=== PATIENT | male | born 1945 | race Caucasian/White ===

== ENCOUNTER → 2023-12-06 15:37 | Outpatient (REF) | payer OTHER, SELFPAY | LOC: HWRCS 15:37 | PROVIDERS: ATTENDING PHYSICIAN Internal Medicine Critical Care Medicine; FAMILY PHYSICIAN Family Medicine | DX: G47.33 Obstructive sleep apnea (adult) (pediatric) (principal) | CPT/HCPCS: 93306 ==

== ENCOUNTER → 2024-08-03 11:47 | Outpatient (REF) | payer OTHER, SELFPAY | LOC: DHSLP 11:47 | PROVIDERS: ATTENDING PHYSICIAN Internal Medicine Critical Care Medicine; FAMILY PHYSICIAN Family Medicine | DX: G47.33 Obstructive sleep apnea (adult) (pediatric) (principal); R06.83 Snoring | CPT/HCPCS: 95800 ==

== ENCOUNTER → 2024-10-06 06:18 | Outpatient (REF) | payer OTHER, SELFPAY | LOC: MRI 06:18 | PROVIDERS: ATTENDING PHYSICIAN Physical Medicine & Rehabilitation Sports Medicine | DX: M25.551 Pain in right hip (principal); T14.8XXA Other injury of unspecified body region, initial encounter; M70.61 Trochanteric bursitis, right hip; M76.01 Gluteal tendinitis, right hip; M16.11 Unilateral primary osteoarthritis, right hip | CPT/HCPCS: 73721 ==

== ENCOUNTER 2024-10-17 07:41 | Emergency (ER) | payer OTHER, SELFPAY ==
[2024-10-17 07:59] VITALS: BP 157/80
--- NOTE | 2024-10-17 09:10 | ED.GENMED ---
History of Present Illness
General
Chief Complaint: Cold/Flu/URI Symptoms
Source: patient and spouse
Time Seen by Provider: 10/17/24 09:00
History of Present Illness
History of Present Illness:
79-year-old male with past medical history of mild chronic kidney disease, hyperlipidemia, recently diagnosed with COVID this past Tuesday but symptoms starting last presenting to the emergency department for evaluation due to continued and
worsening cough, fatigue and generally feeling unwell. Patient states that last time he had COVID a little over 1 year ago he was given a prescription for Paxlovid but reports that the urgent care told him because of his history of chronic kidney
disease and some of his medications that he had increased risk of being on the medication and patient ultimately decided to forego the medication. Patient did start with a low-grade fever yesterday but has not had a fever yet today. No recent
antibiotics. No other concerns at this time.
Past History
Past History
ED Past Medical History: Hypercholesterolemia and Renal failure
ED Past Surgical History: Cholecystectomy and Tonsilectomy
Social History
Tobacco: Non-smoker
Alcohol: None
Drug: None
Personal:
Living: with family
Review of Systems
Review of Systems
All Other Systems: ROS reviewed and negative except as documented in HPI and ROS
Phy Exam
Physical Exam
Physical Exam:
GENERAL: Alert , in no apparent distress
EYE: conjunctiva clear
NECK: Supple
ENT: o/p clr, mmm.
CARDIAC: Regular rate and rhythm
LUNGS: Clear breath sounds bilaterally, no acute respiratory distress, no wheezes/rales/rhonchi
NEUROLOGICAL: Alert and oriented
SKIN: Warm and dry, skin intact.
MUSCULOSKELETAL: well perfused.
PSYCH: Normal and appropriate interaction.
Scores
Heart Failure Risk
Heart Failure Risk Score: Not Applicable
Heart Score for Chest Pain Patients
STEMI patient?: Not applicable
Withdrawal Assessment of Alcohol
Withdrawal Assessment Completed?: Not applicable
Course
Orders/Labs/Results
Orders:
Orders
10/17/24 09:08
CR Chest - 2 Views Urgent
Comment:
Reason For Exam: covid, worsening cough
10/17/24 09:22
Influenza A+B Rapid Molecular Urgent
RENNY Source: Nasal Swab
Specimen Description:
Vital Signs
Initial and Last Documented VS:
Initial Vital Signs
Temp Pulse Resp BP Pulse Ox
99.0 F 80 18 157/80 97
10/17/24 07:59 10/17/24 07:59 10/17/24 07:59 10/17/24 07:59 10/17/24 07:59
Last Documented Vital Signs
Temp Pulse Resp BP Pulse Ox
99.0 F 70 27 120/75 98
10/17/24 07:59 10/17/24 10:00 10/17/24 10:00 10/17/24 10:00 10/17/24 10:25
MDM/Problems Addressed
Differential Diagnosis Includes:
COVID, flu, pneumonia
MDM/Problems Addressed:
79-year-old male presenting the emergency department for evaluation after testing positive for COVID on Tuesday, symptoms started last . Patient arrives to the emergency department hemodynamically stable, no hypoxia, no tachypnea and no
tachycardia. No coughing appreciated during my exam and lungs are otherwise clear. Will obtain chest x-ray to rule out any potential for superimposed bacterial infection although my suspicion is patient likely just has COVID but without any need
for hospitalization. Discussed continued [id number] measures and remedies. Will prescribe inhaler. Anticipate discharge home.
*Radiology
Radiology exam reviewed: preliminary read by ED provider (Normal chest x-ray)
*Pulse Oximetry
Patient hypoxic: no
*Critical Care Note
Total Time (30-74mins, 75-104mins- exclusive of procedures): Not Applicable
Patient Management
Escalation/DeEscalation of care consider admission/obs:
Patient's imaging is unremarkable. He remains hemodynamically stable and in no acute distress. Time patient is stable for discharge home to follow-up with primary care provider as needed. Aware of return precautions.
ED Attending Note
-
Portions of this chart may have been created with voice recognition software.� Occasional wrong word or��sound alike� substitutions may have occurred due to the inherent limitations of voice recognition software.
Discharge Plan
Departure
Patient Disposition: Home (Routine Discharge)
Date of Disposition: 10/17/24
Time of Disposition: 10:31
Patient with high blood pressure during this ER visit?: Yes
Discharge Problem:
COVID-19
Instructions: COVID-19 - ED discharge instructions
Prescriptions:
New
albuterol sulfate 90 mcg/actuation HFA aerosol inhaler
2 puff inhalation Q6H PRN (Reason: shortness of breath or wheezing) Qty: 6.7 0RF
No Action
cetirizine 10 MG tablet
10 mg PO DAILY
aspirin 81 MG tablet,delayed release (DR/EC)
81 mg PO DAILY
simvastatin 20 MG tablet
20 mg PO QPM
hydrocodone-acetaminophen 1 TABLET tablet
1 tab PO Q4HPRN PRN (Reason: breakthrough pain) Qty: 10 0RF
tamsulosin 0.4 MG capsule
0.4 mg PO DAILY Qty: 7 0RF
Referrals:
NONE,* [Family Provider] -
Interventions
Interventions:
*Risk Screen - Suicide Last Done: 10/17/24 07:59
*General Assessment Last Done: 10/17/24 07:59
*Neglect/Abuse Screening Last Done: 10/17/24 07:59
ED- Fall Risk Assessment Last Done: 10/17/24 09:20
*ED COVID-19 Vaccine History Last Done: 10/17/24 09:20
*Nursing Disposition Last Done: 10/17/24 10:41
ED- Pulmonary Assessment Last Done: 10/17/24 09:20
Discharge Date and Time
Discharge Date/Time: 10/17/24 10:41
Print Language: BOLIVIAN
[2024-10-17 09:18] VITALS: BMI 26.1
[2024-10-17 09:20] VITALS: BP 132/76
[2024-10-17 10:00] VITALS: BP 120/75
== END 2024-10-17 10:41 | disposition home or self-care (01) ==
LOC: EMR 07:41
PROVIDERS: EMERGENCY PHYSICIAN Emergency Medicine
DX: U07.1 COVID-19 (principal); E78.00 Pure hypercholesterolemia, unspecified; N18.9 Chronic kidney disease, unspecified; Z90.49 Acquired absence of other specified parts of digestive tract
CPT/HCPCS: 99283; 71046; 87502

== ENCOUNTER → 2025-05-16 16:30 | Outpatient (REF) | payer OTHER, SELFPAY | LOC: RAD 16:30 | PROVIDERS: ATTENDING PHYSICIAN Specialist; FAMILY PHYSICIAN Family Medicine | DX: N20.0 Calculus of kidney (principal) | CPT/HCPCS: 76775 ==

== ENCOUNTER 2025-08-09 06:14 | Day surgery (SDC) | payer OTHER, MEDICARE, SELFPAY | END 2025-08-09 14:02 | disposition home or self-care (01) | LOC: GI 06:14 | PROVIDERS: ATTENDING PHYSICIAN Internal Medicine Gastroenterology; FAMILY PHYSICIAN Family Medicine | DX: Z12.11 Encounter for screening for malignant neoplasm of colon (principal); D12.2 Benign neoplasm of ascending colon | CPT/HCPCS: 45380; 88305 ==